=== PATIENT | female | born 1975 | race Caucasian/White ===

== ENCOUNTER 2018-09-24 18:49 | Emergency (ER) | payer BC ==
[~2018-09-24] VITALS: Ht 162.6 cm; Wt 72.6 kg
[~2018-09-24 18:49] MED LIST: AMOXICILLIN500 MG PO; CYCLOBENZAPRINE10 MG PO; NORCO 5-325 TA1 EACH PO; PAXIL20 MG PO; TRI-PREVIFEM1 EACH PO
== END 2018-09-24 22:13 | disposition home or self-care (01) ==
LOC: ED 18:49
DX: S06.0X0A Concussion without loss of consciousness, initial encounter (principal); Z79.899 Other long term (current) drug therapy; W01.10XA Fall on same level from slipping, tripping and stumbling with subsequent striking against unspecified object, initial encounter
CPT/HCPCS: 70450; 99284-25